=== PATIENT | male | born 1995 | race African-American/Black ===

== ENCOUNTER 2017-02-21 18:28 | Inpatient (IN) ==
[2017-02-21] MEDS ORDERED: HEPARIN 1,000 UNIT/1 ML VIAL IV STA (21:02)
[2017-02-21] MEDS ORDERED: HEPARIN DRIP 25,000 UNITS/500 ML PREMIX IV SCH (21:30)
[2017-02-21 21:31] LABS: Basophils % 0.2 % (0.0-0.8); Eosinophils % 0.2 % (0.00-10.9); Hematocrit 44.1 VOL% (42.0-52.0); Hemoglobin 16.1 GM/DL (14.0-18.0); Immature Granulocytes % 0.4 %; Immature Granulocytes Absolute 0.05 #; Lymphocytes # 2.9 10*3/uL (1.4-4.0); Mean Corpuscular HGB Conc 36.5 GM/DL (32-36); Mean Corpuscular Hemoglobin 28 PG (27-34); Mean Corpuscular Volume 77.9 FL (87-102); Mean Platelet Volume 8.8 FL (9.6-12.0); Monocytes # 2.1 10*3/uL (0.11-0.8); Monocytes % 17.1 % (1.7-12.7); Neutrophils # 7.4 10*3/uL (1.4-7.4); Neutrophils % 59.1 % (38.7-73.9); Platelet Count 206 T/CUMM (130-400); Red Blood Count 5.66 MC/CUMM (3.8-5.5); Red Cell Distribution Width 13.8 % (9.3-17.3); White Blood Count 12.5 T/CUMM (4-12)
[2017-02-21 21:39] LABS: INR 1.1; PT Patient Result 11.1 SECS; Partial Thromboplastin Time 29.8 SECS (0-40)
[2017-02-21 21:57] LABS: Albumin 3.8 G/DL (3.4-5.0); Bilirubin,Total 0.8 MG/DL (0.2-1.0); Calcium 9.2 MG/DL (8.5-10.1); Osmolality,Calculated 274.5 MOS/KG (273-304); Potassium 4.5 MMOL/L (3.5-5.1); Total Protein 8.2 G/DL (6.4-8.3)
--- NOTE | 2017-02-21 22:28 | Emergency Department Note ---
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 Mode of Arrival: Ambulatory Time Seen by Provider: 02/21/17 19:11 - History of Present Illness HPI Narrative: This is a 21-year-old male of descent who presents with 2 days of pleuritic left chest pain associated with shortness of breath and chills but no fever. The patient took for hot showers today because of recurrent chills. He presents with a history of his brother having pulmonary emboli and his cousin having pulmonary emboli however the patient is never had thromboembolic disease. Initially his pulse is 112 and his room air O2 sat is 92% per Allergies/Adverse Reactions: Allergies Allergy/AdvReac Type Severity Reaction Status Date / Time No Known Allergies Allergy Unverified 02/21/17 18:34 Review of System - Review of System Constitutional: Present: chills. Absent: fever, night sweats, weakness Eyes: Absent: redness, vision change Head/Ears/Nose/Throat: Absent: epistaxis, nasal drainage Respiratory: Absent: cough, respiratory distress, wheezing Cardiovascular: Present: chest pain. Absent: dyspnea on exertion, orthopnea, edema Gastrointestinal: Absent: diarrhea, constipation, hematemesis, melena Genitourinary male: Absent: urgency, dysuria Musculoskeletal: Absent: joint swelling, lower back pain, leg pain, neck pain Skin: Absent: change in color, change in hair/nails, pruritus Neurological: Absent: weakness, numbness, paresthesias Psychiatric: Absent: anxiety, depression Endocrine: Absent: heat intolerance, polydipsia Hematological/Lymphatic: Absent: easy bruising, lymphadenopathy Allergic/Immunologic: Absent: urticaria, itchy eyes Medical,Surgical,& Family Hx - Social History Smoking Status: Current every day smoker Frequency of Alcohol Use: None Type of Drug Use: None Exam Vital Signs: Vital Signs Temperature 97.7 F 02/21/17 18:31 Pulse Rate 112 H 02/21/17 18:31 Respiratory Rate 20 02/21/17 18:31 Blood Pressure 147/99 02/21/17 18:31 O2 Sat by Pulse Oximetry 92 L 02/21/17 18:31 - General General appearance: alert - Eye Eye exam: Present: PERRL, EOMI - ENT ENT exam: Present: normal exam, normal oropharynx - Neck Neck exam: Present: normal inspection, full ROM - Chest Chest inspection: Present: normal inspection - Respiratory Respiratory exam: Present: rales - Cardiovascular Cardiovascular exam: Present: regular rate, normal rhythm - Abdominal Exam Abdominal exam: Present: soft, normal bowel sounds - Extremities Exam Extremities exam: Present: normal inspection, full ROM - Back Exam Back exam: Present: normal inspection, full ROM - Neurological Exam Neurological exam: Present: alert, oriented X3, CN II-XII intact - Psychiatric Psychiatric exam: Present: normal affect, normal mood - Skin Skin exam: Present: warm, dry Course Course Narrative: The patient does not appear to have a pulmonary embolus as a cause of his left- sided pleuritic chest pain but rather pneumonia. Because his room air O2 sat is 92%, he has a large left lower lobe infiltrate be admitted to the hospital for intravenous antibiotics to assure that he is clinically improving. The case was discussed with the hospitalist who agreed to admit the patient. Results - Labs CBC & BMP: 02/21/17 21:13 02/21/17 21:13 Disposition Clinical Impression: Pneumonia Disposition: Still a Patient Additional Instructions: Because the patient has room air O2 sat 92% on a large left lower lobe infiltrate it seems reasonable that he should be admitted to the hospital for intravenous antibiotics to assure overall clinical improvement before discharge. Case was discussed with the hospitalist who agreed to admit the patient.
[2017-02-21] MEDS ORDERED: cefTRIAXone 1,000 MG in SODIUM CHLORIDE 0.9% 100 ML IV STA (22:34)
[2017-02-21] MEDS ORDERED: AZITHROMYCIN 250 MG TABLET PO STA (22:35)
[2017-02-21] MEDS ORDERED: LEVOFLOXACIN INJ 750 MG in PREMIX 1 EACH IV STA (23:00)
[2017-02-21] MEDS ORDERED: LEVOFLOXACIN INJ 150 ML IV ONE (23:01)
[2017-02-21] MEDS ORDERED: ONDANSETRON 4 MG/2 ML VIAL IV PRN (23:31)
[2017-02-21] MEDS ORDERED: KETOROLAC 30 MG/1 ML VIAL IV ONE (23:31)
--- NOTE | 2017-02-21 23:37 | Hospitalist History & Physical ---
Assessment and Plan (1) Pneumonia Status: Acute Assessment and plan: Our plan for this patient will be admitting him to our service. Blood cultures have been drawn. I will give him a Toradol shot for his chest wall pain. IV antibiotics daily while in the hospital. He can be switched to p.o. antibiotics fairly soon and hopefully discharged in the very near future. Current Visit: Yes History of Present Illness Chief complaint: Chest pain and shortness of breath History of present illness: Mr. Gibbs is a 21 year old male with no significant past medical history presents to our ER complaining of tachycardia shortness of breath and chest pain. Patient's brother had a history of a PE in the ER did an evaluation for PE. The there was no blood clots found but it did find a left lower lobe pneumonia per CT scan. We started antibiotics in the emergency room and I was consulted for admission Allergies Allergy/AdvReac Type Severity Reaction Status Date / Time No Known Allergies Allergy Unverified 02/21/17 18:34 Medical,Surgical,& Family Hx - Medical History Medical History: noncontributory (Patient reports no medical problems) - Surgical History Orthopedic Surgeries: Surgical HX of;: Orthopedic Surgery - Family History Family History: Reports;: Family Hematology - Social History Smoking Status: Current every day smoker Frequency of Alcohol Use: None Type of Drug Use: None 12 point system: reviewed and no additional remarkable complaints except as stated Exam - Constitutional Vitals: Period Temp Pulse Resp BP Sys/Pickett Pulse Ox Last 24 Hr 97.7 F-97.7 F 112-112 20-20 147-147/99-99 92 General appearance: over weight - Head Head exam: Present: normal inspection - Eye Eye exam: Present: EOMI Pupils: Present: TANESHA - ENT ENT exam: Present: normal exam - Neck Neck exam: Present: normal inspection - Respiratory Respiratory exam: Present: clear to auscultation bilaterally - Cardiovascular Cardiovascular exam: Present: regular rate and rhythm - GI/Abdominal GI/Abdominal exam: Present: normal bowel sounds - Extremities Exam Extremities exam: Present: normal inspection - Back Exam Back exam: Present: normal inspection - Neurological Exam Neurological exam: Present: alert, oriented X3 - Psychiatric Psychiatric exam: Present: normal affect, normal mood - Skin Skin exam: Present: normal color Results - Labs CBC & BMP: 02/21/17 21:13 02/21/17 21:13
[2017-02-22] MEDS ORDERED: INFLUENZA VIRUS VACCINE 0.5 ML SYRINGE IM ONE (00:47)
[2017-02-22] MEDS ORDERED: PNEUMOCOCCAL VACCINE (23 VALENT) 0.5 ML VIAL IM ONE (00:47)
[2017-02-22] MEDS: ALBUTEROL/IPRATROPIUM 3 ML NEB RESP TX SCH ×4 (01:21→19:48)
[2017-02-22 06:22] LABS: Basophils % 0.2 % (0.0-0.8); Eosinophils # 0.1 10*3/uL (0.0-0.87); Eosinophils % 0.7 % (0.00-10.9); Immature Granulocytes % 0.4 %; Immature Granulocytes Absolute 0.05 #; Lymphocytes # 3.7 10*3/uL (1.4-4.0); Mean Corpuscular HGB Conc 36.9 GM/DL (32-36); Mean Corpuscular Hemoglobin 28 PG (27-34); Mean Corpuscular Volume 77.1 FL (87-102); Mean Platelet Volume 9.4 FL (9.6-12.0); Monocytes # 2.1 10*3/uL (0.11-0.8); Monocytes % 17.3 % (1.7-12.7); Neutrophils # 6.3 10*3/uL (1.4-7.4); Neutrophils % 51.4 % (38.7-73.9); Platelet Count 197 T/CUMM (130-400); Red Blood Count 5.45 MC/CUMM (3.8-5.5); Red Cell Distribution Width 13.6 % (9.3-17.3); White Blood Count 12.2 T/CUMM (4-12)
[2017-02-22 06:24] LABS: Hemoglobin 15.5 GM/DL (14.0-18.0)
[2017-02-22 06:46] LABS: Hypochromasia 1+; Lymphocytes 34 % (20-55); Platelet Estimate Adequate; Segmented Neutrophils 56 % (50-85); Total Cells Counted 100
[2017-02-22 06:47] LABS: Atypical Lymphocytes Few; Giant Platelets Few; Ovalocytes Slight
--- NOTE | 2017-02-22 07:14 | CT Report ---
History is chest pain 100 cc Omni 350 utilized Axial images obtained with 2-D multiplanar reconstruction images also stored and interpreted. There is mild loss the contrast bolus in the lung bases limiting visualization is subsegmental branches. No more central pulmonary emboli seen. There is a 3 cm tissue in anterior mediastinum likely thymus. No significant pleural effusions present. There is a consolidated infiltrate in the left lower lobe. There is some mild consolidation in the lingula. Mild patchy infiltrate/atelectasis present in the right base. Impression: 1. Mildly limited visualization without evidence of pulmonary embolus seen 2. consolidated infiltrate in the left lower lobe and lingula with mild patchy infiltrate/atelectasis in the right base. Plain film follow-up suggested 3. The soft tissue in the anterior mediastinum most likely thymus. The CT exam was performed using one or more of the following dose reduction techniques: Automated exposure control, adjustment of the mA and/or kV according to patient size, or use of iterative reconstruction technique. PROCEDURE INTERPRETED AT [facility] DEPARTMENT OF RADIOLOGY Final Report Signed by: Dr. Rosi Maldonado
[2017-02-22] MEDS: PANTOPRAZOLE 40 MG TABLET PO SCH (08:58)
[2017-02-22 12:35] LABS: HIV Antigen/Antibody Result Nonreactive (Nonreactive)
--- NOTE | 2017-02-22 15:41 | Order Completion Report ---
See report scanned to EMR
[2017-02-22] MEDS: KETOROLAC 15 MG/1 ML VIAL IV PRN (16:15)
--- NOTE | 2017-02-22 17:23 | Hospitalist Progress Note ---
Assessment and Plan (1) Pneumonia Status: Acute Assessment and plan: levaquin 750 mg IV Current Visit: Yes Hospitalist: Subjective Interval history: We will test him for HIV. Patient is rather young to get a pneumonia. Very pleasant 21-year-old. Does not report any history of IV drug abuse. Exam - Constitutional Vitals: Period Temp Pulse Resp BP Sys/Pickett Pulse Ox Last 24 Hr 97.4 F-98.6 F 78-112 10-20 128-151/85-99 91-99 Exam: Heart Rate-[RRR] Lungs-[few rhonchi] GI-[+bs soft, NT] Ext-[no edema] Neuro [Motor 5/5], [alert and oriented times 3] psych [normal mood and affect] General [no acute distress] Results - Labs CBC & BMP: 02/22/17 05:24 02/21/17 21:13 Lab Results: I have reviewed the past 24 hour labs - Diagnostic Findings Procedure: CT - chest: report reviewed by me (PE, bilateral infiltrate )
[2017-02-22] MEDS: LEVOFLOXACIN INJ 750 MG in PREMIX 1 EACH IV SCH (22:47)
[2017-02-23] MEDS: ALBUTEROL/IPRATROPIUM 3 ML NEB RESP TX SCH ×4 (00:54→19:26)
[2017-02-23] MEDS: KETOROLAC 15 MG/1 ML VIAL IV PRN (01:07)
[2017-02-23 05:25] LABS: Basophils % 0.2 % (0.0-0.8); Eosinophils # 0.1 10*3/uL (0.0-0.87); Eosinophils % 1.2 % (0.00-10.9); Hematocrit 38.6 VOL% (42.0-52.0); Immature Granulocytes % 0.4 %; Immature Granulocytes Absolute 0.04 #; Lymphocytes # 3.4 10*3/uL (1.4-4.0); Lymphocytes % 35.5 % (21.2-54.2); Mean Corpuscular HGB Conc 36.3 GM/DL (32-36); Mean Corpuscular Hemoglobin 28 PG (27-34); Mean Corpuscular Volume 78.1 FL (87-102); Mean Platelet Volume 9.1 FL (9.6-12.0); Monocytes # 1.4 10*3/uL (0.11-0.8); Monocytes % 15.1 % (1.7-12.7); Neutrophils # 4.5 10*3/uL (1.4-7.4); Neutrophils % 47.6 % (38.7-73.9); Platelet Count 184 T/CUMM (130-400); Red Blood Count 4.94 MC/CUMM (3.8-5.5); Red Cell Distribution Width 13.4 % (9.3-17.3); White Blood Count 9.5 T/CUMM (4-12)
[2017-02-23 05:56] LABS: Calcium 8.3 MG/DL (8.5-10.1); Osmolality,Calculated 274.7 MOS/KG (273-304)
[2017-02-23] MEDS: PANTOPRAZOLE 40 MG TABLET PO SCH (09:09)
--- NOTE | 2017-02-23 16:00 | Hospitalist Progress Note ---
Assessment and Plan (1) Pneumonia Status: Acute Assessment and plan: White count has returned to normal. Continue levaquin 750 mg IV, check IgG and IgM Current Visit: Yes Hospitalist: Subjective Interval history: Patient reports his shortness of breath is better. He should be able to go home tomorrow. I will check immunoglobulin levels. I advised him to see an nuclear engineer at [facility] as this is his second pneumonia at the age of 21. Exam - Constitutional Vitals: Period Temp Pulse Resp BP Sys/Pickett Pulse Ox Last 24 Hr 98.2 F-99.3 F 77-110 16-20 113-138/67-79 93-100 Exam: Heart Rate-[RRR] Lungs-[clear] GI-[+bs soft, NT] Ext-[no edema] Neuro [Motor 5/5], [alert and oriented times 3] psych [normal mood and affect] General [no acute distress] Results - Labs CBC & BMP: 02/23/17 04:27 02/23/17 04:27 Lab Results: I have reviewed the past 24 hour labs Labs: Blood cultures 2 negative no growth
[2017-02-23 16:32] LABS: Immunoglobulin G 1340 MG/DL (700-1600); Immunoglobulin M 81 MG/DL (40-230)
[2017-02-23] MEDS: LEVOFLOXACIN INJ 750 MG in PREMIX 1 EACH IV SCH (23:11)
[2017-02-24] MEDS: ALBUTEROL/IPRATROPIUM 3 ML NEB RESP TX SCH ×2 (00:29→07:29)
[2017-02-24] MEDS: KETOROLAC 15 MG/1 ML VIAL IV PRN (02:51)
[2017-02-24 06:17] LABS: Basophils % 0.4 % (0.0-0.8); Eosinophils # 0.2 10*3/uL (0.0-0.87); Eosinophils % 2.7 % (0.00-10.9); Hematocrit 39.2 VOL% (42.0-52.0); Hemoglobin 14.1 GM/DL (14.0-18.0); Immature Granulocytes % 0.7 %; Immature Granulocytes Absolute 0.05 #; Lymphocytes # 3.3 10*3/uL (1.4-4.0); Lymphocytes % 42.5 % (21.2-54.2); Mean Corpuscular Hemoglobin 28 PG (27-34); Mean Corpuscular Volume 77.8 FL (87-102); Mean Platelet Volume 8.9 FL (9.6-12.0); Monocytes # 1.1 10*3/uL (0.11-0.8); Monocytes % 14.3 % (1.7-12.7); Neutrophils % 39.4 % (38.7-73.9); Platelet Count 215 T/CUMM (130-400); Red Blood Count 5.04 MC/CUMM (3.8-5.5); Red Cell Distribution Width 13.3 % (9.3-17.3); White Blood Count 7.7 T/CUMM (4-12)
[2017-02-24 06:43] LABS: Calcium 8.8 MG/DL (8.5-10.1); Osmolality,Calculated 278.4 MOS/KG (273-304); Potassium 4.1 MMOL/L (3.5-5.1)
[2017-02-24 08:04] VITALS: BP 132/69
[2017-02-24] MEDS: PANTOPRAZOLE 40 MG TABLET PO SCH (08:28)
--- NOTE | 2017-02-24 10:30 | XRay Report ---
History: Pneumonia. Shortness of breath Date: 02/24/2017 Study: Chest x-ray AP portable Comparison exam: June 15, 2007 There is cardiomegaly. The pulmonary vasculature is borderline to minimally prominent. The mediastinal contour is unchanged. There is mild left greater than right pleural effusion. There is some mild atelectatic parenchymal consolidation in the left lower lobe more so than the right. Osseous structures are unchanged. Impression: Atelectatic parenchymal consolidation in the left lower lobe more so than the right. This could represent pneumonia as suggested by the history. Cardiomegaly and borderline pulmonary venous hypertension appearance PROCEDURE INTERPRETED AT [facility] DEPARTMENT OF RADIOLOGY Final Report Signed by: Dr. Katelyn Saez
--- NOTE | 2017-02-24 11:27 | Discharge Summary ---
Hospital Course - Hospital Course Hospital Course: 21 yo bm with history of no medical problems except for obesity who presents with productive cough and fever. Chest CT shows bilateral pneumonia. Patient reports this is a second bout of pneumonia that he has had in his lifetime. He does not remember being an unhealthy kid. We did testing for HIV and it was negative. I also checked his IgG levels and they were normal at 1340 and his IgM normal at 81. Patient was treated with high-dose Levaquin and has improved. Blood cultures 2 negative no growth. He will be discharged on 10 more days of Cipro p.o. Patient does not have insurance. We [facility]. - Time spent with patient Time with patient DS: Less than 30 minutes (25 min) Diagnosis - Discharge Diagnosis (1) Pneumonia Status: Acute Specialty Discharge - Follow Up or Referrals Follow up with: [facility] [Provider Group] - 1 Week Discharge Plan - Discharge Data Disposition: Disch To Home/Self Care Condition at Discharge: Stable Discharge Diet: regular diet Activity: resume usual activities as tolerated Hygiene: no restrictions Weight Bearing at Discharge: full weight bearing - Discharge Medications New Ciprofloxacin HCl [Ciprofloxacin Tab] 500 mg PO BID #20 tablet - Follow Up or Referral Follow Up: [facility] [Provider Group] - 1 Week - Forms/Instructions Instructions: Community-acquired Pneumonia (DC), Cannabis Abuse (DC) Exam - Constitutional Vitals: Period Temp Pulse Resp BP Sys/Pickett Pulse Ox Last 24 Hr 97.8 F-99.5 F 58-104 17-20 112-142/69-86 94-100 General appearance: no acute distress, over weight - Respiratory Respiratory exam: Present: clear to auscultation bilaterally. Absent: rhonchi, wheezes - Cardiovascular Cardiovascular exam: Present: regular rate and rhythm. Absent: systolic murmur - GI/Abdominal GI/Abdominal exam: Present: normal bowel sounds, soft. Absent: tenderness Discharge Results Procedures and tests throughout hospitalization: Pending Orders 02/21/17 23:28 Blood Culture Stat 02/25/17 04:00 BMP [Basic Metabolic Panel] IN AM Comp Blood Count Auto Diff IN AM Labs on day of discharge: Labs from last 24 hours 02/24/17 02/24/17 02/23/17 05:33 05:33 04:27 WBC 7.7 RBC 5.04 Hgb 14.1 Hct 39.2 L MCV 77.8 L MCH 28 MCHC 36.0 RDW 13.3 Plt Count 215 MPV 8.9 L Neut % (Auto) 39.4 Lymph % (Auto) 42.5 [place] % (Auto) 14.3 H Eos % (Auto) 2.7 Baso % (Auto) 0.4 Neut # (Auto) 3.0 Lymph # (Auto) 3.3 [place] # (Auto) 1.1 H Eos # (Auto) 0.2 Baso # (Auto) 0.0 Immature Gran % 0.7 Nucleated RBC % 0.0 Immature Gran # 0.05 Nucleated RBCs # 0.00 Immature Plt Fraction 0.0 Sodium 140 Potassium 4.1 Chloride 103 Carbon Dioxide 28 Anion Gap 13.1 BUN 14 Creatinine 1.20 GFR Calculation 138 BUN/Creatinine Ratio 11.00 Glucose 82 Calculated Osmolality 278.4 Calcium 8.8 IgG 1340 IgM 81 Preliminary micro results at discharge 02/21/17 23:28 Blood Culture - Preliminary Blood No growth at 1 day 02/21/17 23:28 Blood Culture - Preliminary Blood No growth at 1 day DS: Provider Date of admission: 02/23/17 13:53 Primary care physician: . No PCP Attending physician on admission: Abeba Mary MD Discharging clinician: Abeba Mary MD
== END 2017-02-24 11:53 | disposition home or self-care (01) | DRG 195 ==
LOC: N.ED 18:28 → N.EDINP 18:28 → N.5E 02-22 00:03
PROVIDERS: ADMIT Internal Medicine; ATTEND Internal Medicine

== ENCOUNTER 2021-12-27 10:15 | Inpatient (IN) ==
[2021-12-27] MEDS ORDERED: SODIUM CHLORIDE 0.9% 1,000 ML IV STA (11:01)
[2021-12-27 11:08] LABS: Basophils % 0.3 % (0.0-0.8); Eosinophils # 0.1 10*3/uL (0.0-0.87); Eosinophils % 0.6 % (0.00-10.9); Hemoglobin 15.4 GM/DL (14.0-18.0); Immature Granulocytes % 0.5 %; Immature Granulocytes Absolute 0.07 #; Lymphocytes # 3.4 10*3/uL (1.4-4.0); Lymphocytes % 25.7 % (21.2-54.2); Mean Corpuscular HGB Conc 35.8 GM/DL (32-36); Mean Corpuscular Volume 78.6 FL (87-102); Mean Platelet Volume 8.6 FL (9.6-12.0); Monocytes # 1.8 10*3/uL (0.11-0.8); Monocytes % 13.8 % (1.7-12.7); Neutrophils % 59.1 % (38.7-73.9); Platelet Count 220 T/CUMM (130-400); Red Blood Count 5.47 MC/CUMM (3.8-5.5); Red Cell Distribution Width 14.4 % (9.3-17.3); White Blood Count 13.3 T/CUMM (4-12)
[2021-12-27 11:28] LABS: Albumin 3.6 G/DL (3.4-5.0); Bilirubin,Total 0.8 MG/DL (0.20-1.00); Calcium 8.8 MG/DL (8.5-10.1); Osmolality,Calculated 275.5 MOS/KG (273-304); Total Protein 8.1 G/DL (6.4-8.2)
[2021-12-27] MEDS ORDERED: HYDROmorphone 1 MG/1 ML SYRINGE IV STA (12:00)
[2021-12-27] MEDS ORDERED: ONDANSETRON 4 MG/2 ML VIAL IV STA (12:00)
[2021-12-27] MEDS ORDERED: ENOXAPARIN 120 MG/0.8 ML SYRINGE SUBCUT STA (12:29)
[2021-12-27] MEDS ORDERED: HYDROmorphone 1 MG/1 ML SYRINGE ONE (13:09)
[2021-12-27] MEDS ORDERED: MIDAZOLAM 2 MG/2 ML VIAL ONE (13:09)
[2021-12-27] MEDS ORDERED: DOCUSATE SODIUM 100 MG CAPSULE PO PRN (13:15)
[2021-12-27] MEDS ORDERED: ACETAMINOPHEN 325 MG TABLET PO PRN (13:15)
[2021-12-27] MEDS ORDERED: NICOTINE 21 MG/24 HR PATCH TRANSDERM PRN (13:15)
[2021-12-27] MEDS ORDERED: ALBUTEROL 2.5 MG/3 ML NEB RESP TX PRN ×2 (13:15)
[2021-12-27] MEDS ORDERED: ONDANSETRON 4 MG/2 ML VIAL IV PRN (13:15)
[2021-12-27] MEDS ORDERED: PNEUMOCOCCAL VACCINE (13 VALENT) 0.5 ML SYRINGE IM ONE (14:49)
[2021-12-27 16:07] LABS: Barbiturates Screen,Urine Negative (Negative); Benzodiazepines Screen,Urine Positive (Negative); Cannabinoid Screen,Urine Positive (Negative); Opiate Screen,Urine Positive (Negative); Phencyclidine Screen,Urine Negative (Negative)
[2021-12-27] MEDS ORDERED: MORPHINE 2 MG/1 ML SYRINGE IV PRN (16:29)
[2021-12-27] MEDS: hydrALAZINE 20 MG/1 ML VIAL IV PRN (16:43)
[2021-12-27] MEDS: RIVAROXABAN 15 MG TABLET PO SCH (16:45)
[2021-12-27] MEDS ORDERED: METOPROLOL TARTRATE 5 MG/5 ML VIAL IV PRN (17:37)
[2021-12-27] MEDS: DIAZEPAM 5 MG TABLET PO PRN (18:09)
[2021-12-27] MEDS: HYDROmorphone 1 MG/1 ML SYRINGE IV PRN (18:09)
[2021-12-27] MEDS ORDERED: HYDROmorphone 1 MG/1 ML SYRINGE IV ONE (20:30)
[2021-12-27] MEDS ORDERED: DIAZEPAM 5 MG TABLET PO ONE (21:00)
[2021-12-27] MEDS ORDERED: amLODIPine 10 MG TABLET PO ONE (21:30)
[2021-12-27] MEDS ORDERED: KETOROLAC 15 MG/1 ML VIAL IV ONE (21:30)
[2021-12-27] MEDS ORDERED: ENOXAPARIN 120 MG/0.8 ML SYRINGE SUBCUT ONE (21:45)
[2021-12-28 04:38] LABS: Basophils % 0.2 % (0.0-0.8); Eosinophils # 0.1 10*3/uL (0.0-0.87); Eosinophils % 0.6 % (0.00-10.9); Hematocrit 38.9 VOL% (42.0-52.0); Hemoglobin 13.6 GM/DL (14.0-18.0); Immature Granulocytes % 0.5 %; Immature Granulocytes Absolute 0.07 #; Lymphocytes # 3.6 10*3/uL (1.4-4.0); Lymphocytes % 25.7 % (21.2-54.2); Mean Corpuscular Volume 79.2 FL (87-102); Mean Platelet Volume 8.6 FL (9.6-12.0); Monocytes # 2.1 10*3/uL (0.11-0.8); Monocytes % 14.7 % (1.7-12.7); Neutrophils % 58.3 % (38.7-73.9); Platelet Count 182 T/CUMM (130-400); Red Blood Count 4.91 MC/CUMM (3.8-5.5); Red Cell Distribution Width 14.3 % (9.3-17.3)
[2021-12-28 05:00] LABS: Calcium 8.5 MG/DL (8.5-10.1); Potassium 3.8 MMOL/L (3.5-5.1)
[2021-12-28] MEDS ORDERED: KETOROLAC 15 MG/1 ML VIAL IV ONE (07:40)
[2021-12-28] MEDS: RIVAROXABAN 15 MG TABLET PO SCH ×2 (08:35→17:09)
[2021-12-28] MEDS: PANTOPRAZOLE 40 MG TABLET PO SCH (08:35)
[2021-12-28] MEDS: amLODIPine 10 MG TABLET PO SCH (08:47)
[2021-12-28] MEDS: DIAZEPAM 5 MG TABLET PO PRN (18:23)
[2021-12-28] MEDS: hydrALAZINE 20 MG/1 ML VIAL IV PRN (19:33)
[2021-12-29] MEDS: HYDROmorphone 1 MG/1 ML SYRINGE IV PRN (03:26)
[2021-12-29 05:43] LABS: Basophils % 0.3 % (0.0-0.8); Eosinophils # 0.2 10*3/uL (0.0-0.87); Eosinophils % 1.7 % (0.00-10.9); Hematocrit 38.8 VOL% (42.0-52.0); Hemoglobin 13.7 GM/DL (14.0-18.0); Immature Granulocytes % 0.4 %; Immature Granulocytes Absolute 0.04 #; Lymphocytes # 3.1 10*3/uL (1.4-4.0); Lymphocytes % 32.4 % (21.2-54.2); Mean Corpuscular HGB Conc 35.3 GM/DL (32-36); Mean Corpuscular Volume 78.7 FL (87-102); Mean Platelet Volume 8.7 FL (9.6-12.0); Monocytes # 1.2 10*3/uL (0.11-0.8); Neutrophils % 52.2 % (38.7-73.9); Platelet Count 213 T/CUMM (130-400); Red Blood Count 4.93 MC/CUMM (3.8-5.5); Red Cell Distribution Width 14.1 % (9.3-17.3); White Blood Count 9.5 T/CUMM (4-12)
[2021-12-29 05:48] LABS: INR 1.1; PT Patient Result 11.9 SECS (10.1-12.1); Partial Thromboplastin Time 38.6 SECS (23.7-32.9)
[2021-12-29 05:58] LABS: Calcium 8.6 MG/DL (8.5-10.1); Osmolality,Calculated 274.5 MOS/KG (273-304)
[2021-12-29] MEDS: PANTOPRAZOLE 40 MG TABLET PO SCH (08:51)
[2021-12-29] MEDS: amLODIPine 10 MG TABLET PO SCH (08:51)
[2021-12-29] MEDS: RIVAROXABAN 15 MG TABLET PO SCH (10:09)
[2021-12-29] MEDS ORDERED: WARFARIN 5 MG TABLET PO ONE (11:06)
[2021-12-29] MEDS: ENOXAPARIN 100 MG/ML SYRINGE SUBCUT SCH ×2 (11:37→23:06)
[2021-12-30] MEDS: HYDROmorphone 1 MG/1 ML SYRINGE IV PRN ×2 (04:29→22:34)
[2021-12-30 06:48] LABS: PT Patient Result 11.3 SECS (10.1-12.1)
[2021-12-30] MEDS: PANTOPRAZOLE 40 MG TABLET PO SCH (08:36)
[2021-12-30] MEDS: amLODIPine 10 MG TABLET PO SCH (08:36)
[2021-12-30 11:14] LABS: AFP Tumor < 2.2 NG/ML (0-8); Cancer Antigen 19-9 2.47 U/ML (0-35); Carcinoembryonic Antigen < 0.50 NG/ML (0.0-5.0); Prostate Specific Antigen Diag 0.48 NG/ML (0-3.60)
[2021-12-30] MEDS: ENOXAPARIN 100 MG/ML SYRINGE SUBCUT SCH ×2 (11:49→23:48)
[2021-12-30] MEDS: WARFARIN 10 MG TABLET PO SCH (17:40)
[2021-12-31 06:09] LABS: Basophils % 0.4 % (0.0-0.8); Eosinophils # 0.2 10*3/uL (0.0-0.87); Eosinophils % 2.9 % (0.00-10.9); Hemoglobin 13.8 GM/DL (14.0-18.0); Immature Granulocytes % 0.3 %; Immature Granulocytes Absolute 0.02 #; Lymphocytes # 3.4 10*3/uL (1.4-4.0); Lymphocytes % 43.7 % (21.2-54.2); Mean Corpuscular HGB Conc 35.4 GM/DL (32-36); Mean Corpuscular Volume 78.8 FL (87-102); Mean Platelet Volume 8.4 FL (9.6-12.0); Monocytes # 0.8 10*3/uL (0.11-0.8); Monocytes % 9.8 % (1.7-12.7); Neutrophils % 42.9 % (38.7-73.9); Platelet Count 287 T/CUMM (130-400); Red Blood Count 4.95 MC/CUMM (3.8-5.5); Red Cell Distribution Width 14.2 % (9.3-17.3); White Blood Count 7.8 T/CUMM (4-12)
[2021-12-31 06:26] LABS: PT Patient Result 11.4 SECS (10.1-12.1)
[2021-12-31 06:31] LABS: Calcium 8.8 MG/DL (8.5-10.1); Osmolality,Calculated 271.8 MOS/KG (273-304); Potassium 3.6 MMOL/L (3.5-5.1)
[2021-12-31] MEDS: amLODIPine 10 MG TABLET PO SCH (08:33)
[2021-12-31] MEDS: PANTOPRAZOLE 40 MG TABLET PO SCH (08:33)
[2021-12-31] MEDS: ENOXAPARIN 100 MG/ML SYRINGE SUBCUT SCH ×2 (12:51→22:46)
[2021-12-31] MEDS: WARFARIN 10 MG TABLET PO SCH (17:58)
[2021-12-31] MEDS ORDERED: WARFARIN 10 MG TABLET PO ONE (18:00)
[2021-12-31] MEDS: HYDROmorphone 1 MG/1 ML SYRINGE IV PRN (22:50)
[2022-01-01 05:10] LABS: Basophils % 0.4 % (0.0-0.8); Eosinophils # 0.3 10*3/uL (0.0-0.87); Eosinophils % 3.5 % (0.00-10.9); Hematocrit 39.8 VOL% (42.0-52.0); Hemoglobin 13.8 GM/DL (14.0-18.0); Immature Granulocytes % 0.5 %; Immature Granulocytes Absolute 0.04 #; Lymphocytes # 3.7 10*3/uL (1.4-4.0); Lymphocytes % 48.9 % (21.2-54.2); Mean Corpuscular HGB Conc 34.7 GM/DL (32-36); Mean Corpuscular Volume 80.1 FL (87-102); Mean Platelet Volume 8.7 FL (9.6-12.0); Monocytes # 0.9 10*3/uL (0.11-0.8); Monocytes % 11.2 % (1.7-12.7); Neutrophils % 35.5 % (38.7-73.9); Platelet Count 302 T/CUMM (130-400); Red Blood Count 4.97 MC/CUMM (3.8-5.5); Red Cell Distribution Width 14.1 % (9.3-17.3); White Blood Count 7.6 T/CUMM (4-12)
[2022-01-01 05:17] LABS: INR 1.1
[2022-01-01 05:33] LABS: Calcium 8.9 MG/DL (8.5-10.1); Osmolality,Calculated 280.3 MOS/KG (273-304)
[2022-01-01 07:05] LABS: Atypical Lymphocytes Few; Eosinophils 3 % (0-10); Lymphocytes 48 % (20-55); Platelet Estimate Adequate; Total Cells Counted 100
[2022-01-01] MEDS: amLODIPine 10 MG TABLET PO SCH (09:12)
[2022-01-01] MEDS: PANTOPRAZOLE 40 MG TABLET PO SCH (09:12)
[2022-01-01] MEDS: ENOXAPARIN 100 MG/ML SYRINGE SUBCUT SCH ×2 (13:55→23:16)
[2022-01-01] MEDS ORDERED: WARFARIN 10 MG TABLET PO ONE (18:00)
[2022-01-01] MEDS: WARFARIN 10 MG TABLET PO SCH (18:09)
[2022-01-01] MEDS: HYDROmorphone 1 MG/1 ML SYRINGE IV PRN (23:25)
[2022-01-02 05:30] LABS: Basophils % 0.4 % (0.0-0.8); Eosinophils # 0.3 10*3/uL (0.0-0.87); Eosinophils % 3.3 % (0.00-10.9); Hematocrit 39.5 VOL% (42.0-52.0); Hemoglobin 13.7 GM/DL (14.0-18.0); Immature Granulocytes % 0.9 %; Immature Granulocytes Absolute 0.07 #; Lymphocytes # 3.8 10*3/uL (1.4-4.0); Lymphocytes % 47.7 % (21.2-54.2); Mean Corpuscular HGB Conc 34.7 GM/DL (32-36); Mean Corpuscular Volume 80.6 FL (87-102); Mean Platelet Volume 8.4 FL (9.6-12.0); Monocytes # 0.8 10*3/uL (0.11-0.8); Monocytes % 9.9 % (1.7-12.7); Neutrophils % 37.8 % (38.7-73.9); Platelet Count 309 T/CUMM (130-400)
[2022-01-02 05:39] LABS: INR 1.4; PT Patient Result 14.8 SECS (10.1-12.1)
[2022-01-02 05:56] LABS: Calcium 8.7 MG/DL (8.5-10.1); Eosinophils 3 % (0-10); Lymphocytes 51 % (20-55); Osmolality,Calculated 277.4 MOS/KG (273-304); Platelet Estimate Adequate; Potassium 3.9 MMOL/L (3.5-5.1); Total Cells Counted 100
[2022-01-02 05:57] LABS: Atypical Lymphocytes Few
[2022-01-02] MEDS: amLODIPine 10 MG TABLET PO SCH (09:07)
[2022-01-02] MEDS: PANTOPRAZOLE 40 MG TABLET PO SCH (09:07)
[2022-01-02 10:51] LABS: Protein C Activity Plasma 96 % (70 - 150); Protein S Ag (Free) 55 % (65 - 160)
[2022-01-02] MEDS: ENOXAPARIN 100 MG/ML SYRINGE SUBCUT SCH ×2 (12:15→22:49)
[2022-01-02 12:51] LABS: Protein S Activity Plasma 84 % (65 - 160)
[2022-01-02 14:36] LABS: Phospholipid Ab IgM, S < 9.4 MPL
[2022-01-02] MEDS: WARFARIN 10 MG TABLET PO SCH (17:54)
[2022-01-02] MEDS: DIAZEPAM 5 MG TABLET PO PRN (23:06)
[2022-01-03 05:19] LABS: Basophils % 0.5 % (0.0-0.8); Eosinophils # 0.3 10*3/uL (0.0-0.87); Eosinophils % 3.4 % (0.00-10.9); Hematocrit 40.1 VOL% (42.0-52.0); Immature Granulocytes % 0.9 %; Immature Granulocytes Absolute 0.08 #; Lymphocytes # 4.5 10*3/uL (1.4-4.0); Lymphocytes % 50.8 % (21.2-54.2); Mean Corpuscular HGB Conc 34.9 GM/DL (32-36); Mean Corpuscular Volume 79.6 FL (87-102); Mean Platelet Volume 8.8 FL (9.6-12.0); Monocytes # 0.7 10*3/uL (0.11-0.8); Neutrophils % 36.4 % (38.7-73.9); Platelet Count 365 T/CUMM (130-400); Red Blood Count 5.04 MC/CUMM (3.8-5.5); Red Cell Distribution Width 14.2 % (9.3-17.3); White Blood Count 8.9 T/CUMM (4-12)
[2022-01-03 05:28] LABS: INR 1.6; PT Patient Result 17.5 SECS (10.1-12.1)
[2022-01-03 05:40] LABS: Osmolality,Calculated 276.5 MOS/KG (273-304); Potassium 3.5 MMOL/L (3.5-5.1)
[2022-01-03 05:45] LABS: Atypical Lymphocytes Few; Eosinophils 5 % (0-10); Lymphocytes 51 % (20-55); Platelet Estimate Adequate; Total Cells Counted 100
[2022-01-03] MEDS ORDERED: POTASSIUM CHLORIDE 20 MEQ TABLET PO ONE (08:30)
[2022-01-03] MEDS: PANTOPRAZOLE 40 MG TABLET PO SCH (09:15)
[2022-01-03] MEDS: ENOXAPARIN 150 MG/ML SYRINGE SUBCUT SCH ×2 (09:15→21:32)
[2022-01-03] MEDS: amLODIPine 10 MG TABLET PO SCH (09:15)
[2022-01-03] MEDS: WARFARIN 10 MG TABLET PO SCH (17:10)
[2022-01-03] MEDS: DIAZEPAM 5 MG TABLET PO PRN (22:30)
[2022-01-04 03:31] LABS: Basophils % 0.4 % (0.0-0.8); Eosinophils # 0.3 10*3/uL (0.0-0.87); Eosinophils % 3.1 % (0.00-10.9); Hematocrit 38.5 VOL% (42.0-52.0); Hemoglobin 13.5 GM/DL (14.0-18.0); Immature Granulocytes Absolute 0.09 #; Lymphocytes # 4.9 10*3/uL (1.4-4.0); Lymphocytes % 52.4 % (21.2-54.2); Mean Corpuscular HGB Conc 35.1 GM/DL (32-36); Mean Corpuscular Volume 79.7 FL (87-102); Mean Platelet Volume 8.6 FL (9.6-12.0); Monocytes # 0.9 10*3/uL (0.11-0.8); Monocytes % 9.4 % (1.7-12.7); Neutrophils % 33.7 % (38.7-73.9); Platelet Count 360 T/CUMM (130-400); Red Blood Count 4.83 MC/CUMM (3.8-5.5); White Blood Count 9.4 T/CUMM (4-12)
[2022-01-04 03:36] LABS: INR 1.7; PT Patient Result 18.4 SECS (10.1-12.1)
[2022-01-04 03:47] LABS: Calcium 9.1 MG/DL (8.5-10.1); Osmolality,Calculated 277.5 MOS/KG (273-304); Potassium 3.7 MMOL/L (3.5-5.1)
[2022-01-04 03:57] LABS: Atypical Lymphocytes Few; Eosinophils 4 % (0-10); Lymphocytes 54 % (20-55); Metamyelocytes 1 %; Total Cells Counted 100
[2022-01-04 03:58] LABS: Hypochromia Slight; Microcytosis Slight; Platelet Estimate Normal; Target Cells Slight
[2022-01-04] MEDS ORDERED: WARFARIN 5 MG TABLET PO ONE (09:30)
[2022-01-04] MEDS: amLODIPine 10 MG TABLET PO SCH (09:48)
[2022-01-04] MEDS: ENOXAPARIN 150 MG/ML SYRINGE SUBCUT SCH ×2 (09:48→21:56)
[2022-01-04] MEDS: PANTOPRAZOLE 40 MG TABLET PO SCH (09:48)
[2022-01-04 10:41] LABS: Protein C Antigen 104 % (72-160)
[2022-01-04] MEDS: WARFARIN 10 MG TABLET PO SCH (18:57)
[2022-01-05 05:43] LABS: Basophils % 0.4 % (0.0-0.8); Eosinophils # 0.3 10*3/uL (0.0-0.87); Hematocrit 39.3 VOL% (42.0-52.0); Hemoglobin 13.5 GM/DL (14.0-18.0); Immature Granulocytes Absolute 0.09 #; Lymphocytes # 4.6 10*3/uL (1.4-4.0); Lymphocytes % 49.9 % (21.2-54.2); Mean Corpuscular HGB Conc 34.4 GM/DL (32-36); Mean Corpuscular Volume 81.7 FL (87-102); Monocytes % 11.2 % (1.7-12.7); Neutrophils % 34.5 % (38.7-73.9); Platelet Count 357 T/CUMM (130-400); Red Blood Count 4.81 MC/CUMM (3.8-5.5); Red Cell Distribution Width 14.2 % (9.3-17.3); White Blood Count 9.1 T/CUMM (4-12)
[2022-01-05 05:52] LABS: INR 2.1
[2022-01-05 06:03] LABS: Osmolality,Calculated 278.3 MOS/KG (273-304); Potassium 3.8 MMOL/L (3.5-5.1)
[2022-01-05 06:11] LABS: Eosinophils 1 % (0-10); Hypochromia 1+; Lymphocytes 52 % (20-55); Microcytosis Slight; Total Cells Counted 100
[2022-01-05 06:12] LABS: Atypical Lymphocytes Few; Platelet Estimate Normal; Target Cells Slight
[2022-01-05 07:52] VITALS: BP 130/84
[2022-01-05] MEDS: PANTOPRAZOLE 40 MG TABLET PO SCH (08:18)
[2022-01-05] MEDS: amLODIPine 10 MG TABLET PO SCH (08:18)
[2022-01-05] MEDS: ENOXAPARIN 150 MG/ML SYRINGE SUBCUT SCH (08:18)
== END 2022-01-05 13:03 | disposition home or self-care (01) | DRG 175 ==
LOC: N.ED 10:15 → N.EDINP 10:15 → SUATTDRO 12:50 → N.ICU 13:02 → SUATTDRO 13:15 → N.ICU 14:05 → N.3E 12-29 20:03
PROVIDERS: ADMIT Internal Medicine Cardiovascular Disease; ATTEND Emergency Medicine